=== PATIENT | female | born 1990 | race Caucasian/White ===

== ENCOUNTER 2016-10-18 11:53 | Outpatient (CLI) | payer OTHER | END 2016-10-18 11:54 | disposition home or self-care (01) | DX: M67.432 Ganglion, left wrist (principal); O99.89 Other specified diseases and conditions complicating pregnancy, childbirth and the puerperium; Z3A.15 15 weeks gestation of pregnancy ==

== ENCOUNTER 2016-12-02 14:26 | Observation (INO) | payer OTHER ==
[2016-12-02] MEDS ORDERED: TERBUTALINE 1 MG/ML VIAL SUBQ ONE ×2 (16:09→18:42)
[2016-12-02] MEDS ORDERED: NIFEdipine 10 MG CAPSULE PO ONE (17:43)
[2016-12-02] MEDS ORDERED: TERBUTALINE 1 MG/ML VIAL SUBQ SCH (20:00)
[2016-12-02] MEDS ORDERED: TERBUTALINE 2.5 MG TABLET PO SCH (20:00)
[2016-12-02] MEDS ORDERED: ZOLPIDEM 5 MG TABLET PO PRN (20:29)
[2016-12-03] MEDS: TERBUTALINE 2.5 MG TABLET PO SCH ×3 (00:40→08:22)
== END 2016-12-03 09:00 | disposition home or self-care (01) ==
DX: O60.02 Preterm labor without delivery, second trimester (principal); O44.52 Low lying placenta with hemorrhage, second trimester; Z3A.21 21 weeks gestation of pregnancy
CPT/HCPCS: 36415; 76816; 81003; 85025; 96372; 99214; A9270; G0378

== ENCOUNTER 2017-05-31 07:47 | Day surgery (SDC) | payer OTHER ==
[2017-05-31 08:32] LABS: HCG UR QUAL NEGATIVE
[2017-05-31] MEDS ORDERED: LACTATED RINGERS 1,000 ML IV ONE ×2 (08:35→10:50)
[2017-05-31] MEDS ORDERED: DEXAMETHASONE 4 MG/ML VIAL IVP ONE (09:45)
[2017-05-31] MEDS ORDERED: LIDOCAINE-MPF 2% 5 ML VIAL IM ONE (09:45)
[2017-05-31] MEDS ORDERED: fentaNYL 100 MCG/2 ML VIAL IVP ONE (09:45)
[2017-05-31] MEDS ORDERED: PROPOFOL 200 MG/20 ML VIAL IVP ONE (09:45)
[2017-05-31] MEDS ORDERED: KETOROLAC 30 MG/ML VIAL IVP ONE (09:45)
[2017-05-31] MEDS ORDERED: MIDAZOLAM 2 MG/2 ML VIAL IVP ONE (09:45)
[2017-05-31] MEDS ORDERED: ONDANSETRON 4 MG/2 ML VIAL IVP ONE (09:45)
[2017-05-31] MEDS ORDERED: BUPIVACAINE 0.25% PF 30 ML VIAL SUBQ ONE ×2 (09:54→10:06)
[2017-05-31] MEDS ORDERED: HYDROmorphone 1 MG/ML CARPUJECT ONE (10:43)
--- NOTE | 2017-05-31 11:13 | OPERATIVE REPORT ---
DATE OF SURGERY: 05/31/2017 00:00:00 PREOPERATIVE DIAGNOSIS: Left recurrent dorsal wrist ganglion. POSTOPERATIVE DIAGNOSIS: Left recurrent dorsal wrist ganglion. NAME OF PROCEDURE: Left dorsal wrist ganglion recurrent excision. SURGEON: Marco Berkowitz MD. TOY STUFFER: Ji Jc MD. ANESTHESIA: General. POSTOPERATIVE PLAN: Same day surgery, discharge. DISCHARGE INSTRUCTIONS: Keep the splint intact until followup appointment. At that time, we will nancy ve the splint and allow for range of motion as tolerated. INDICATIONS FOR SURGERY: This is a 26-year-old female who has a 5-year history of a dorsal wrist gang lion on the left side. She had no injury. It was excised in 2012 after aspiration. It then recurred i n 2015. It was aspirated by a hand surgeon in [place]. She continues to have pain and a palpable bump . An MRI showed that it was fluid filled. An ultrasound confirmed this. Secondary to her pain, she re quested surgery. Risks, benefits, alternatives were discussed. Risks include pain, bleeding, infectio n, damage to nearby structures, lack of symptom relief, need for further surgery, cyst recurrence whi ch is up to 20%, numbness, anesthetic risk and possibly . She signed a written consent form. EXAMINATION UNDER ANESTHESIA FINDINGS: There is a mildly positive Taylor, which is equal to the contr alateral side. Full range of motion, wrist extension, flexion, ulnar deviation, radial deviation, pro nation and supination as compared to the contralateral side. SURGICAL FINDINGS: A 5 cm x 5 cm fluid filled ganglion cyst, which tracked down to the radial carpal joint. The mass was excised and a section of the capsule was excised. IMPLANTS: None. ANTIBIOTICS: Weight based Ancef. ESTIMATED BLOOD LOSS: 1 mL. URINE OUTPUT: Not recorded. INTRAVENOUS FLUIDS: 700 mL. TOURNIQUET: 18 minutes at 200 mmHg. SPECIMENS: Left dorsal wrist mass. COMPLICATIONS: None. DISPOSITION: Stable to PACU. DEEP VENOUS THROMBOSIS PROPHYLAXIS: Early frequent ambulation. PROCEDURE IN DETAIL: The patient was met in the preop holding area on date of procedure. Upper extrem ity was signed, consent was verified. She desired to proceed. She was brought to the operating room a nd surrendered to anesthesia. Once general anesthesia had been obtained, she was placed in the supine position. All bony prominences were well-padded. The left arm was prepped and draped in the standard sterile fashion. A surgical time-out was held where we confirmed the procedure, procedure, identity , allergies, antibiotics. All were in agreement, we proceeded. An Esmarch was used to exsanguinate th e limb and tourniquet was elevated to 200 mmHg. Her prior incision was used, approximately 2 cm of it. Using tenotomy and Metzenbaum scissors, blunt dissection was carried around the mass. The stalk was traced back to the radiocarpal joint and the ma ss was excised at the stalk. A 5 mm portion of the capsule was then excised. Bovie was used for hemos tasis. The wound was irrigated copiously. Layered closure was performed with 2-0 Vicryl in the dermis and subcutaneous Monocryl and 5 mL of 0.25% Marcaine was instilled into and about the wound. Sterile dressing was applied and a splint was applied. The patient was awakened and transferred to the [facility] room. JOB #: [id number] EXT JOB #:[id number]
[2017-05-31 11:49] VITALS: BP 99/66
== END 2017-05-31 07:48 | disposition home or self-care (01) ==
LOC: SDS 07:47
PROVIDERS: ATTEND Orthopaedic Surgery
PROC: 0RBP0ZZ Excision of Left Wrist Joint, Open Approach (ICD-10-PCS; principal; 2017-05-31 09:00)
DX: M67.432 Ganglion, left wrist (principal)
CPT/HCPCS: 25112; 81025; J1170; J7120

== ENCOUNTER 2017-10-07 12:58 | Emergency (ER) | payer OTHER ==
[2017-10-07 13:21] LABS: BILIRUBIN,URINE NEGATIVE (NEGATIVE); GLUCOSE, URINE (UA) NEGATIVE (NEGATIVE); KETONES,URINE (UA) NEGATIVE (NEGATIVE); LEUKOCYTE ESTERASE, URINE NEGATIVE (NEGATIVE); NITRITE,URINE NEGATIVE (NEGATIVE); OCCULT BLOOD,URINE NEGATIVE (NEGATIVE); PROTEIN,URINE NEGATIVE (NEGATIVE); UROBILINOGEN,URINE 0.2 (NORMAL) E.U./dL (NORMAL)
[2017-10-07 13:24] LABS: CLARITY,URINE CLEAR (CLEAR); HCG UR QUAL NEGATIVE
[2017-10-07] MEDS ORDERED: SODIUM CHLORIDE 0.9% 1,000 ML IV ONE (13:31)
[2017-10-07] MEDS ORDERED: MORPHINE 2 MG/ML CARPUJECT IVP STA ×2 (13:31→14:11)
[2017-10-07] MEDS ORDERED: ONDANSETRON 4 MG/2 ML VIAL IVP STA (13:31)
[2017-10-07] MEDS ORDERED: cefTRIAXone 1 GM in SODIUM CHLORIDE 0.9% MINIBAG 100 ML IV STA (13:31)
--- NOTE | 2017-10-07 13:36 | ED Physician Documentation ---
PD HPI ABD PAIN - Stated complaint Stated Complaint: KIDNEY PX - Chief complaint Chief Complaint: Abd Pain - History obtained from History obtained from: Patient - History of Present Illness Timing - onset: Other (26-year-old woman has frequent UTIs. She developed symptoms of a bladder flexion including frequency and dysuria about 10 days ago. She saw her doctor 2 days ago and was diagnosed with pyelonephritis based on back pain and positive urinalysis. She is gotten worse despite taking Macrobid and Pyridium with back pain chills and nausea.) Review of Systems Constitutional: reports: Chills, Fatigue Nose: denies: Rhinorrhea / runny nose, Congestion GI: reports: Nausea, Vomiting. 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 - Present Medications Home Medications: Ambulatory Orders Medication Instructions Recorded Confirmed Ciprofloxacin HCl [Cipro] 500 mg PO BID #14 tablet 10/07/17 HYDROcod/ACETAM 5/325 [[place] 5/325] 1 - 2 ea PO Q6H PRN #15 tablet 10/07/17 Ondansetron HCl [Zofran] 4 mg PO Q6H PRN #10 tablet 10/07/17 Venlafaxine [Effexor] 37.5 mg PO BID 10/07/17 10/07/17 busPIRone [Buspar] 5 mg PO BID 10/07/17 10/07/17 - Allergies Allergies/Adverse Reactions: Allergies Allergy/AdvReac Type Severity Reaction Status Date / Time No Known Drug Allergies Allergy Verified 10/07/17 13:09 - Social History Does the pt smoke?: No Smoking Status: Never smoker Does the pt drink ETOH?: Yes Does the pt have substance abuse?: No - Immunizations Immunizations are current?: Yes - POLST Patient has POLST: No PD ED PE NORMAL - Vitals Vital signs reviewed: Yes - General General: Alert and oriented X 3, No acute distress - HEENT HEENT: PERRL, EOMI - Neck Neck: Supple, no meningeal sign, No bony TTP - Cardiac Cardiac: RRR, No murmur - Respiratory Respiratory: No respiratory distress, Clear bilaterally - Abdomen Abdomen: Non tender - Back Back: Other (Tender to the right CVA) - Neuro Neuro: Alert and oriented X 3, Normal speech - Psych Psych: Normal mood, Normal affect Results - Vitals Vitals: Vital Signs - 24 hr 10/07/17 10/07/17 13:06 14:41 Temperature 36.7 C Heart Rate 96 71 Respiratory 18 16 Rate Blood Pressure 98/59 L 95/52 L O2 Saturation 97 99 Oxygen O2 Source Room air - Labs Labs: Laboratory Tests 10/07/17 10/07/17 10/07/17 13:15 13:20 13:20 WBC 7.2 RBC 4.64 Hgb 13.9 Hct 41.5 MCV 89.5 MCH 30.0 MCHC 33.5 RDW 13.3 Plt Count 273 MPV 8.4 Neut # 3.3 Lymph # 2.9 Aiken # 0.4 Eos # 0.6 Baso # 0.1 Absolute Nucleated RBC 0.00 Nucleated RBC % 0.0 Sodium 138 Potassium 3.6 Chloride 103 Carbon Dioxide 24 Anion Gap 11.0 BUN 13 Creatinine 0.6 Estimated GFR (MDRD) 120 Glucose 89 Calcium 9.5 Total Bilirubin 0.7 AST 19 ALT 14 Alkaline Phosphatase 55 Total Protein 7.3 Albumin 4.7 Globulin 2.6 Albumin/Globulin Ratio 1.8 Lipase 36 Urine Color YELLOW Urine Clarity CLEAR Urine pH 6.0 Ur Specific [place] 1.025 Urine Protein NEGATIVE Urine Glucose (UA) NEGATIVE Urine Ketones NEGATIVE Urine Occult Blood NEGATIVE Urine Nitrite NEGATIVE Urine Bilirubin NEGATIVE Urine Urobilinogen 0.2 (NORMAL) Ur Leukocyte Esterase NEGATIVE Ur Microscopic Review NOT INDICATED Urine Culture Comments NOT INDICATED Urine HCG, Qual NEGATIVE PD MEDICAL DECISION MAKING - ED course ED course: She probably has incompletely treated pyelonephritis as Macrobid has poor penetration into the renal parenchyma. Based on this we will change her antibiotics to something with more systemic coverage, she will receive a Rocephin, IV fluids, morphine and Zofran in the emergency department. Symptoms much better after these interventions and her lab work is reassuring. Departure - Departure Disposition: 01 Home, Self Care Clinical Impression: Pyelonephritis Condition: Good Record reviewed to determine appropriate education?: Yes Instructions: Pyelonephritis Dc Prescriptions: Ciprofloxacin HCl [Cipro] 500 mg PO BID #14 tablet HYDROcod/ACETAM 5/325 [[place] 5/325] 1 - 2 ea PO Q6H PRN #15 tablet PRN Reason: Pain Ondansetron HCl [Zofran] 4 mg PO Q6H PRN #10 tablet PRN Reason: Nausea / Vomiting Comments: Follow-up with urologist on Monday as scheduled. Return if worse. Do not drink or drive while taking narcotic pain medication. Note that many narcotic pain relievers also contain Tylenol/acetaminophen. Please ensure that your total dose of acetaminophen from all sources does not exceed 3 g (3000 mg) per day. You may get constipated while on this medication. Take a stool softener such as Colace twice a day while you are on it. Also add an [id number] laxative such as senna or MiraLAX on any day that you do not have a bowel movement. If you received a narcotic pain medication or sedative while in the emergency department, do not drive for the next 24 hours.
[2017-10-07] MEDS ORDERED: KETOROLAC 60 MG/2 ML VIAL IVP STA (14:11)
[2017-10-07 14:17] LABS: ALBUMIN 4.7 g/dL (3.2-5.5); ALBUMIN/GLOBULIN RATIO 1.8 (1.0-2.2); BILIRUBIN,TOTAL 0.7 mg/dL (0.2-1.0); CALCIUM 9.5 mg/dL (8.5-10.3); CREATININE 0.6 mg/dL (0.4-1.0); TOTAL PROTEIN 7.3 g/dL (6.7-8.2)
[2017-10-07 14:39] LABS: BASOPHILS # (AUTO) 0.1 10^3/uL (0.0-0.1); BASOPHILS % (AUTO) 1.2 %; EOSINOPHILS # (AUTO) 0.6 10^3/uL (0.0-0.7); EOSINOPHILS % (AUTO) 7.9 %; HGB - HEMOGLOBIN 13.9 g/dL (12.0-16.0); LYMPHOCYTES # (AUTO) 2.9 10^3/uL (1.5-3.5); LYMPHOCYTES % (AUTO) 40.2 %; MEAN CORPUSCULAR HGB CONC 33.5 g/dL (32.0-36.0); MEAN CORPUSCULAR VOLUME 89.5 fL (81.0-99.0); MEAN PLATELET VOLUME 8.4 fL (7.9-10.8); MONOCYTES # (AUTO) 0.4 10^3/uL (0.0-1.0); MONOCYTES % (AUTO) 5.7 %; NEUTROPHILS # (AUTO) 3.3 10^3/uL (1.5-6.6); PLT - PLATELET COUNT 273 10^3/uL (130-450); RED BLOOD COUNT 4.64 10^6/uL (4.20-5.40); RED CELL DISTRIBUTION WIDTH 13.3 % (12.0-15.0); WHITE BLOOD COUNT 7.2 x10^3/uL (4.8-10.8)
[2017-10-07 14:42] VITALS: BP 95/52
[2017-10-07] MEDS ORDERED: HYDROcod/ACETAM 5/325 MG TABLET PO STA (14:49)
== END 2017-10-07 14:58 | disposition home or self-care (01) ==
LOC: ED 12:58
DX: N12 Tubulo-interstitial nephritis, not specified as acute or chronic (principal); Z87.440 Personal history of urinary (tract) infections; Z87.442 Personal history of urinary calculi
CPT/HCPCS: 36415; 80053; 81003; 81025; 83690; 85025; 96365; 96375; 96376; 99283; 99284; A9270; 81001; 87086

== ENCOUNTER 2017-10-09 15:07 | Outpatient (CLI) | payer OTHER | END 2017-10-09 15:08 | disposition EMS.NT | LOC: EMS 15:07 | PROVIDERS: ATTEND Surgery | DX: R55 Syncope and collapse (principal) ==

== ENCOUNTER 2017-10-12 12:00 | Observation (INO) | payer OTHER ==
[2017-10-12 12:55] LABS: BILIRUBIN,URINE NEGATIVE (NEGATIVE); GLUCOSE, URINE (UA) 100 mg/dL (NEGATIVE); KETONES,URINE (UA) TRACE mg/dL (NEGATIVE); LEUKOCYTE ESTERASE, URINE NEGATIVE (NEGATIVE); NITRITE,URINE POSITIVE (NEGATIVE); OCCULT BLOOD,URINE NEGATIVE (NEGATIVE); PROTEIN,URINE 100 mg/dL (NEGATIVE); UROBILINOGEN,URINE >=8.0 E.U./dL (NORMAL)
[2017-10-12 13:11] LABS: CLARITY,URINE HAZY (CLEAR); HCG UR QUAL NEGATIVE
[2017-10-12 13:13] LABS: BACTERIA,URINE Few /HPF (None Seen); MUCUS,URINE Marked Strands; RBC,URINE 0-5 /HPF (0-5); SQUAMOUS EPITHELIAL CELL,UR FEW Squamous (<= Few)
[2017-10-12] MEDS ORDERED: PROMETHAZINE INJ 12.5 MG in SODIUM CHLORIDE 0.9% 50 ML IV STA (13:35)
[2017-10-12] MEDS ORDERED: SODIUM CHLORIDE 0.9% 1,000 ML IV ONE (13:35)
[2017-10-12] MEDS: MORPHINE 2 MG/ML CARPUJECT IVP STA ×2 (13:49→13:53)
[2017-10-12 14:07] LABS: BASOPHILS # (AUTO) 0.1 10^3/uL (0.0-0.1); BASOPHILS % (AUTO) 1.2 %; EOSINOPHILS # (AUTO) 0.6 10^3/uL (0.0-0.7); EOSINOPHILS % (AUTO) 9.5 %; HGB - HEMOGLOBIN 13.6 g/dL (12.0-16.0); LYMPHOCYTES # (AUTO) 2.5 10^3/uL (1.5-3.5); LYMPHOCYTES % (AUTO) 38.9 %; MEAN CORPUSCULAR HEMOGLOBIN 30.2 pg (27.0-31.0); MEAN CORPUSCULAR VOLUME 88.9 fL (81.0-99.0); MEAN PLATELET VOLUME 7.8 fL (7.9-10.8); MONOCYTES # (AUTO) 0.4 10^3/uL (0.0-1.0); MONOCYTES % (AUTO) 5.9 %; NEUTROPHILS # (AUTO) 2.8 10^3/uL (1.5-6.6); NEUTROPHILS % (AUTO) 44.5 %; PLT - PLATELET COUNT 299 10^3/uL (130-450); RED BLOOD COUNT 4.52 10^6/uL (4.20-5.40); RED CELL DISTRIBUTION WIDTH 13.4 % (12.0-15.0); WHITE BLOOD COUNT 6.4 x10^3/uL (4.8-10.8)
[2017-10-12 14:11] LABS: CALCIUM 9.7 mg/dL (8.5-10.3); CREATININE 0.7 mg/dL (0.4-1.0)
--- NOTE | 2017-10-12 14:13 | ED Physician Documentation ---
History of Present Illness - Stated complaint Stated Complaint: FEMALE - Chief complaint Chief Complaint: General - Additonal information Additional information: pt sent to the ER to be admitted for pyelo failed outpt tx she 1st saw her PMD at [facility] who is also a urologist about a week ago - dx UTI/ pyelo, rx macrobid got worse came to our ER and was given IVF pain meds and changed to cipro continued to worsen and went to [facility] and was febrile and tachy and had a CT that showed stones (not causing blockage so presumably in kidney - will try and get results) and was again given IVF and meds and got better and was dced home again then followed up at clinic again today and was febrile to 103 and still having severe flank pain so given tylenol and motrin and sent here for admit states pain was initially l kidbey now both fever chills NV urinary sx Review of Systems Constitutional: reports: Fever, Chills Cardiac: denies: Chest pain / pressure Respiratory: denies: Dyspnea GI: reports: Nausea, Vomiting : reports: Dysuria Musculoskeletal: reports: Back pain Immunocompromised: denies: Immunocompromised PD PAST MEDICAL HISTORY - Past Medical History Past Medical History: Yes Cardiovascular: None Respiratory: None Neuro: Headache/migraine Endocrine/Autoimmune: None GI: None : Kidney stones HEENT: None Psych: Depression, Anxiety Musculoskeletal: Other Derm: None - Past Surgical History Past Surgical History: Yes 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, 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 - Present Medications Home Medications: Ambulatory Orders Medication Instructions Recorded Confirmed Ciprofloxacin HCl [Cipro] 500 mg PO BID #14 tablet 10/07/17 10/12/17 Venlafaxine [Effexor] 37.5 mg PO BID 10/07/17 10/12/17 busPIRone [Buspar] 5 mg PO BID 10/07/17 10/12/17 - Allergies Allergies/Adverse Reactions: Allergies Allergy/AdvReac Type Severity Reaction Status Date / Time No Known Drug Allergies Allergy Verified 10/12/17 12:09 - Social History Does the pt smoke?: No Smoking Status: Never smoker Does the pt drink ETOH?: Yes ETOH Use: Wine Does the pt have substance abuse?: No - Immunizations Immunizations are current?: Yes - POLST Patient has POLST: No PD ED PE NORMAL - Vitals Vital signs reviewed: Yes (slightly low BP afebrile now after apap and motrin) - General General: Alert and oriented X 3 - HEENT HEENT: PERRL - Neck Neck: Supple, no meningeal sign - Cardiac Cardiac: RRR - Respiratory Respiratory: No respiratory distress, Clear bilaterally - Abdomen Abdomen: Soft, Non tender - Back Back: No: No CVA TTP (mod [place] CVA TTP - but hurts regardless of whether being palpated) - Derm Derm: Normal color - Neuro Neuro: Alert and oriented X 3 Results - Vitals Vitals: Vital Signs - 24 hr 10/12/17 12:05 Temperature 36.5 C Heart Rate 91 Respiratory 16 Rate Blood Pressure 99/50 L O2 Saturation 97 Oxygen O2 Source Room air - Labs Labs: Laboratory Tests 10/12/17 10/12/17 10/12/17 12:23 13:35 13:35 WBC 6.4 RBC 4.52 Hgb 13.6 Hct 40.1 MCV 88.9 MCH 30.2 MCHC 34.0 RDW 13.4 Plt Count 299 MPV 7.8 L Neut # 2.8 Lymph # 2.5 Adams # 0.4 Eos # 0.6 Baso # 0.1 Absolute Nucleated RBC 0.00 Nucleated RBC % 0.0 Sodium 139 Potassium 3.5 Chloride 102 Carbon Dioxide 27 Anion Gap 10.0 BUN 12 Creatinine 0.7 Estimated GFR (MDRD) 100 Glucose 92 Lactic Acid Calcium 9.7 Urine Color DK. ORANGE Urine Clarity HAZY Urine pH 5.0 Ur Specific [place] >=1.030 H Urine Protein 100 H Urine Glucose (UA) 100 H Urine Ketones TRACE Urine Occult Blood NEGATIVE Urine Nitrite POSITIVE H Urine Bilirubin NEGATIVE Urine Urobilinogen >=8.0 H Ur Leukocyte Esterase NEGATIVE Urine RBC 0-5 Urine WBC 4-5 Ur Squamous Epith Cells FEW Squamous Urine Bacteria Few Urine Mucus Marked Strands Ur Microscopic Review INDICATED Urine Culture Comments INDICATED Urine HCG, Qual NEGATIVE 10/12/17 14:09 WBC RBC Hgb Hct MCV MCH MCHC RDW Plt Count MPV Neut # Lymph # Adams # Eos # Baso # Absolute Nucleated RBC Nucleated RBC % Sodium Potassium Chloride Carbon Dioxide Anion Gap BUN Creatinine Estimated GFR (MDRD) Glucose Lactic Acid 0.8 Calcium Urine Color Urine Clarity Urine pH Ur Specific [place] Urine Protein Urine Glucose (UA) Urine Ketones Urine Occult Blood Urine Nitrite Urine Bilirubin Urine Urobilinogen Ur Leukocyte Esterase Urine RBC Urine WBC Ur Squamous Epith Cells Urine Bacteria Urine Mucus Ur Microscopic Review Urine Culture Comments Urine HCG, Qual PD MEDICAL DECISION MAKING - ED course ED course: here pt is afebrile, borderline BP, nl WBC given hx of failing outpt tx after being dced from clinic X 2 and ER X 2 this week and sent to ER specifically to be admitted seems reasonable to provide at least an overnight of IVF and antibiotics called to [facility] and they verbally report urine culture from first visit grew E coli sensitive to everything (ampicillin augmentin, cefipime, rocephin, cefuroxime, cipro, cephalexin, levaquin, ertapenem imipenem, gent, macrobid, tetracycline and tobramycin) got records from [facility] and CT showed intrarenal stones nothing obstructive Departure - Departure Disposition: ED Place in Observation Clinical Impression: Pyelonephritis Condition: Good
[2017-10-12] MEDS ORDERED: CIPROFLOXACIN 400 MG/200 ML 200 ML IV ONE (15:45)
[2017-10-12] MEDS ORDERED: KETOROLAC 60 MG/2 ML VIAL IVP STA (15:51)
[2017-10-12] MEDS ORDERED: PROCHLORPERAZINE 10 MG/2 ML VIAL IVP PRN (17:57)
[2017-10-12] MEDS ORDERED: SODIUM CHLORIDE FLUSH 0.9% 10 ML SYRINGE IVP PRN (17:57)
[2017-10-12] MEDS ORDERED: ZOLPIDEM 5 MG TABLET PO PRN (17:57)
--- NOTE | 2017-10-12 18:13 | HISTORY & PHYSICAL EXAMINATION ---
Chief Complaint - Chief Complaint Chief Complaint: fever, urinary burning and flank pain History of Present Illness - Admitted From Admitted From:: ER - History Obtained From History obtained from: pt - History of Present Illness HPI Comment/Other: Ms. Feliciano is 26-year-old female with a past medical history significant for headache/migraine, kidney stone, Depression, Anxiety, who present ER for complaint of fever, bilateral flank pain, bladder and urinary burning sensation. Pt report she was first diagnosis of UTI/pyelonephritis by her urologist in [place], she was treated with Macrobid. She felt got worse then she went to ER. She was treated with IVF, pain medication, and Cipro. She got better and D/C to home. Then the pain came back again, and report she had fever. Pt denies chest pain, shortness of breath, headache, abdominal pain. ER provider contacted [facility]. The CT done report intrarenal stones without obstruction. The sensitive study of UA done reveal all sensitive to ampicillin augmentin, cefipime, rocephin, cefuroxime, cipro, cephalexin, levaquin, ertapenem imipenem, gent, macrobid, tetracycline and tobramycin. Today in ER, she is afebrile. UA reveals positive UTI. Other lab test is unremarkable. Pt also report her BP is always running at 90-100. 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 She has five children Living arrangement: At home Living Situation: With spouse/s.o., With family - Substance History Use: Uses substance without health or social issues: NONE Abuse: Recurrent use of substance despite neg consequences: NONE Dependence: Experiences withdrawal or developed tolerances: NONE - POLST Patient has POLST: No POLST Status: Full Code Meds/Allgy - Home Medications Home Medications: Ambulatory Orders Medication Instructions Recorded Confirmed Ciprofloxacin HCl [Cipro] 500 mg PO BID #14 tablet 10/07/17 10/12/17 Venlafaxine [Effexor] 75 mg PO DAILY 10/07/17 10/12/17 busPIRone [Buspar] 10 mg PO TID 10/07/17 10/12/17 - Allergies Allergies/Adverse Reactions: Allergies Allergy/AdvReac Type Severity Reaction Status Date / Time No Known Drug Allergies Allergy Verified 10/12/17 12:09 Review of Systems - Constitutional Constitutional: reports: Fatigue, Fever, Weakness. denies: Chills, Malaise, Poor appetite, Diaphoresis, Night sweats - Eyes Eyes: denies: Pain, Irritation, Amaurosis, Blurred vision, Spots in vision, Field loss, Vision loss, Dipolpia - Ears, Nose & Throat Ears, Nose & Throat: denies: Ear pain, Hearing loss, Hearing aids, Tinnitus, Vertigo, Nasal pain, Nasal discharge, Nosebleeds, Nasal congestion, Sore throat , Bleeding gums - Cardiovascular Cariovascular: denies: Irregular heart rate, Palpitations, Chest pain, Edema, Lightheadedness, Syncope, Exertional dyspnea, Decr. exercise tolerance - Respiratory Respiratory: denies: Cough, Sputum production, Wheezing, Snoring, Hemoptysis, Orthopnea, SOB at rest, SOB with exertion - Gastrointestinal Gastrointestinal: reports: Nausea. denies: Abdominal pain, Abdominal distention , Constipation, Diarrhea, Change in bowel habits, Rectal bleeding, Black stools , Bloody stools, Vomiting, Frankie blood emesis, Coffee grounds emesis, Reflux/ heartburn - Genitourinary Genitourinary: reports: Dysuria, Flank pain. denies: Frequency, Urgency, Hematuria, Incontinence, Nocturia, Urethral discharge - Musculoskeletal Musculoskeletal: denies: Muscle pain, Back pain, Muscle aches, Stiffness, Limited range of motion, Muscle weakness, Gout, Joint pain - Integumentary Integumentary: denies: Rash, Pruritis, Lesions, Dryness, Acne, Pigment changes - Neurological Neurological: denies: General weakness, Focal weakness, Headache, Dizziness, Numbness, Memory problems, Pre-existing deficit, Abnormal gait, Seizures, Incoordination, Slurred speech - Psychiatric Psychiatric: denies: Depression, Anxiety, Suicidal, Delusions, Hallucinations, Homicidal - Endocrine Endocrine: denies: Polyuria, Polydypsia, Polyphagia, Intolerance to cold - Hematologic/Lymphatic Hematologic/Lymphatic: denies: Anemia, Bruising, Petechiae, Blood clots, Lymphadenopathy, Bleeding tendencies, Recurrent infections Exam - Vital Signs Reviewed Vital Signs: Yes Vital Signs: Vital Signs x48h Temp Pulse Resp BP Pulse Ox 10/12/17 12:05 36.5 C 91 16 99/50 L 97 - Physical Exam General Appearance: positive: No acute distress, Alert. negative: Lethargic Eyes Bilateral: positive: Normal inspection, PERRL, EOMI, No lid inflammation, Conjunctivae nml ENT: positive: ENT inspection nml, Pharynx nml, No signs of dehydration. negative: Purulent nasal drainage, Pharyngeal erythema, Oral lesions Neck: positive: Nml inspection, Thyroid nml, No JVD, Trachea midline. negative : Thyromegaly, Lymphadenopathy (R), Lymphadenopathy (L), Stiff neck, Carotid bruit, Swelling/bruising, Tracheal deviation Respiratory: positive: Chest non-tender, No respiratory distress, Breath sounds nml. negative: Wheezes, Rales, Rhonchi Cardiovascular: positive: Regular rate & rhythm, No murmur, No gallop. negative : Irregularly irregular, Extrasystoles, Tachycardia, Bradycardia, Systolic murmur, Diastolic murmur Peripheral Pulses: positive: 2+ Abdomen: positive: Non-tender, No organomegaly, Nml bowel sounds, No distention. negative: Tenderness, Guarding, Rebound Back: positive: Nml inspection, CVA tenderness (R), CVA tenderness (L) Skin: positive: Color nml, No rash, Warm, Dry. negative: Cyanosis, Diaphoresis , Pallor, Skin rash Extremities: positive: Non-tender, Full ROM, Nml appearance. negative: Calf tenderness, Joint swelling, Santos's sign/cords Neurologic/Psychiatric: positive: Oriented x3, Motor nml, Sensation nml, Mood/ affect nml. negative: Sensory loss, Facial droop, Slurred/abnml speech, Depressed mood/affect Conclusion/Plan - Problem List (1) Urinary tract infection Conclusion/Plan: UA reveal positive UTI, sensitive study to all antibiotics as stated at HPI Cipro IV Bid IVF (2) Flank pain Conclusion/Plan: pain control. CT of abdomen reveal non-obstruction kidney stone (3) Kidney stone Conclusion/Plan: hx of Kidney stone, non-obstruction IVF pain control (4) Depression with anxiety Conclusion/Plan: stable, resume home meds (5) DVT prophylaxis Conclusion/Plan: SCD and Lovenox (6) Full code status Conclusion/Plan: pt request full code status - Lab Results Fish Bones: 10/13/17 05:19 10/13/17 05:19 Core Measures - Anticipated LOS I expect patient to be DC'd or transferred within 96 hours.: Yes - DVT/VTE - Prophylaxis VTE/DVT Device ordered at admit?: Yes VTE/DVT Prophylaxis med ordered at admit?: Yes - Stroke - Rehab Assessment Rehab services assessment to be ordered?: No - AMI - Statin at Admit Aspirin Prescribed on Admit: No
[2017-10-12] MEDS ORDERED: MORPHINE 10 MG/ML VIAL IVP STA (18:25)
[2017-10-12] MEDS: SODIUM CHLORIDE 0.9% 1,000 ML IV SCH (19:40)
[2017-10-12] MEDS: SODIUM CHLORIDE FLUSH 0.9% 10 ML SYRINGE IVP SCH (19:40)
[2017-10-12] MEDS: VENLAFAXINE 37.5 MG TABLET PO SCH (21:20)
[2017-10-12] MEDS: MORPHINE 2 MG/ML CARPUJECT IVP PRN (21:20)
[2017-10-12] MEDS: busPIRone 5 MG TABLET PO SCH (21:28)
[2017-10-13] MEDS: ONDANSETRON 4 MG/2 ML VIAL IVP PRN ×2 (00:12→06:05)
[2017-10-13] MEDS: MORPHINE 2 MG/ML CARPUJECT IVP PRN ×4 (00:12→07:07)
[2017-10-13] MEDS: KETOROLAC 15 MG/ML VIAL IVP PRN ×2 (01:20→10:05)
[2017-10-13] MEDS: SODIUM CHLORIDE 0.9% 1,000 ML IV SCH ×2 (04:54→11:46)
[2017-10-13 06:13] LABS: BASOPHILS % (AUTO) 0.6 %; EOSINOPHILS # (AUTO) 0.5 10^3/uL (0.0-0.7); EOSINOPHILS % (AUTO) 7.4 %; HGB - HEMOGLOBIN 12.1 g/dL (12.0-16.0); LYMPHOCYTES # (AUTO) 3.7 10^3/uL (1.5-3.5); MEAN CORPUSCULAR HEMOGLOBIN 29.4 pg (27.0-31.0); MEAN CORPUSCULAR HGB CONC 32.7 g/dL (32.0-36.0); MEAN CORPUSCULAR VOLUME 89.9 fL (81.0-99.0); MEAN PLATELET VOLUME 7.8 fL (7.9-10.8); MONOCYTES # (AUTO) 0.5 10^3/uL (0.0-1.0); MONOCYTES % (AUTO) 6.8 %; NEUTROPHILS # (AUTO) 2.3 10^3/uL (1.5-6.6); NEUTROPHILS % (AUTO) 32.2 %; PLT - PLATELET COUNT 249 10^3/uL (130-450); RED BLOOD COUNT 4.12 10^6/uL (4.20-5.40); RED CELL DISTRIBUTION WIDTH 13.2 % (12.0-15.0)
[2017-10-13 06:29] LABS: ALBUMIN 4.1 g/dL (3.2-5.5); ALBUMIN/GLOBULIN RATIO 1.9 (1.0-2.2); BILIRUBIN,TOTAL 0.2 mg/dL (0.2-1.0); CALCIUM 8.9 mg/dL (8.5-10.3); CREATININE 0.6 mg/dL (0.4-1.0); TOTAL PROTEIN 6.3 g/dL (6.7-8.2)
[2017-10-13] MEDS ORDERED: CIPROFLOXACIN 400 MG/200 ML 200 ML IV SCH ×2 (07:00→14:30)
[2017-10-13] MEDS: SODIUM CHLORIDE FLUSH 0.9% 10 ML SYRINGE IVP SCH ×2 (07:08→14:15)
[2017-10-13] MEDS ORDERED: SODIUM CHLORIDE 0.9% 500 ML IV ONE (07:36)
[2017-10-13] MEDS ORDERED: ENOXAPARIN 40 MG/0.4 ML SYRINGE SUBQ SCH (09:00)
[2017-10-13] MEDS ORDERED: FAMOTIDINE 20 MG TABLET PO SCH (09:00)
[2017-10-13] MEDS ORDERED: POLYETHYLENE GLYCOL 3350 17 GM PACKET PO SCH (09:00)
[2017-10-13] MEDS: VENLAFAXINE 37.5 MG TABLET PO SCH (09:57)
[2017-10-13] MEDS: busPIRone 5 MG TABLET PO SCH (09:57)
--- NOTE | 2017-10-13 12:24 | Discharge Plan ---
Discharge Plan Disposition: 01 Home, Self Care Condition: Stable Prescriptions: Ondansetron HCl [Zofran] 4 mg PO Q6H PRN #15 tablet PRN Reason: Nausea / Vomiting oxyCODONE [Roxicodone] 5 mg PO Q6H PRN #15 tablet PRN Reason: Pain Diet: Regular Activity Restrictions: Activity as Tolerated Shower Restrictions: No Driving Restrictions: No Weight Bearing: Full Weight Instruction Topics: UTI, Pyelonephritis Dc, Ciprofloxacin tablets, Oxycodone tablets or capsules, Ondansetron tablets Additional Instructions or Follow Up instructions: May follow up PCP/Urologist in 3-4 days. Should symptoms return or worsen, may present ER or call 911 for help. No Smoking: If you smoke, Please STOP! Call for help.
--- NOTE | 2017-10-13 12:35 | DISCHARGE SUMMARY ---
Discharge Summary Discharge Date: 10/13/17 Discharging Provider: STANTON Condition at Discharge: Stable Discharge Disposition: Home, Self Care Discharge Facility Name: home - DIAGNOSES Admission Diagnoses: (1) Urinary tract infection (2) Flank pain (3) Kidney stone (4) Depression with anxiety Discharge Diagnoses with Status of Each Condition: (1) Urinary tract infection pt feel much better and request to be discharged. Pt will continue to have antibiotics to finish the course (2) Flank pain pt state her pain is good controlled. pt is prescribed pain medication and Zofran to home (3) Kidney stone hx of kidney stone, non-obstructed. pt's pain is good controlled. pt is prescribed pain medication and Zofran to home (4) Depression with anxiety stable, continue home meds regime - HPI History of Present Illness: Ms. Feliciano is 26-year-old female with a past medical history significant for headache/migraine, kidney stone, Depression, Anxiety, who present ER for complaint of fever, bilateral flank pain, bladder and urinary burning sensation. Pt report she was first diagnosis of UTI/pyelonephritis by her urologist in [place], she was treated with Macrobid. She felt got worse then she went to ER. She was treated with IVF, pain medication, and Cipro. She got better and D/C to home. Then the pain came back again, and report she had fever. Pt denies chest pain, shortness of breath, headache, abdominal pain. ER provider contacted [facility]. The CT done report intrarenal stones without obstruction. The sensitive study of UA done reveal all sensitive to ampicillin augmentin, cefipime, rocephin, cefuroxime, cipro, cephalexin, levaquin, ertapenem imipenem, gent, macrobid, tetracycline and tobramycin. Today in ER, she is afebrile. UA reveals positive UTI. Other lab test is unremarkable. Pt also report her BP is always running at 90-100. - HOSPITAL COURSE Hospital Course: pt was admitted for recurrence of UTI, urinary burning sensation, and flank pain. The CT of abdomen and UA culture and sensitive study was done at out-pt facility. There was non-obstructed kidney stone and UA culture revealed sensitive to all antibiotics in the study. Pt was treated with Cipro IV bid, pain control, IVF. Pt report she feel much better, pain is in good control, no more nausea and vomiting, tolerate the food, and pt request to be discharged to home. Pt is prescribed pain meds, antibiotics and zofran to home. - ALLERGIES Allergies/Adverse Reactions: Allergies Allergy/AdvReac Type Severity Reaction Status Date / Time No Known Drug Allergies Allergy Verified 10/12/17 12:09 - MEDICATIONS Home Medications: Ambulatory Orders Medication Instructions Recorded Confirmed Ciprofloxacin HCl [Cipro] 500 mg PO BID #14 tablet 10/07/17 10/12/17 Venlafaxine [Effexor] 75 mg PO DAILY 10/07/17 10/12/17 busPIRone [Buspar] 10 mg PO TID 10/07/17 10/12/17 Ondansetron HCl [Zofran] 4 mg PO Q6H PRN #15 tablet 10/13/17 oxyCODONE [Roxicodone] 5 mg PO Q6H PRN #15 tablet 10/13/17 - PHYSICAL EXAM AT DISCHARGE General Appearance: positive: No acute distress, Alert. negative: Lethargic Eyes Bilateral: positive: Normal inspection, PERRL, EOMI, No lid inflammation, Conjunctivae nml ENT: positive: ENT inspection nml, Pharynx nml, No signs of dehydration. negative: Purulent nasal drainage, Pharyngeal erythema, Oral lesions, Dry mucous membranes Neck: positive: Nml inspection, Thyroid nml, No JVD, Trachea midline. negative : Thyromegaly, Lymphadenopathy (R), Lymphadenopathy (L), Stiff neck, Carotid bruit, Swelling/bruising, Tracheal deviation Respiratory: positive: Chest non-tender, No respiratory distress, Breath sounds nml. negative: Wheezes, Rales, Rhonchi Cardiovascular: positive: Regular rate & rhythm, No murmur, No gallop. negative : Irregularly irregular, Extrasystoles, Tachycardia, Bradycardia, Systolic murmur, Diastolic murmur Peripheral Pulses: positive: 2+ Abdomen: positive: Non-tender, No organomegaly, Nml bowel sounds, No distention. negative: Tenderness, Guarding, Rebound Back: positive: Nml inspection. negative: CVA tenderness (R), CVA tenderness (L ) Skin: positive: Color nml, No rash, Warm, Dry. negative: Cyanosis, Diaphoresis , Pallor, Skin rash Extremities: positive: Non-tender, Full ROM, Nml appearance. negative: Calf tenderness, Joint swelling, Santos's sign/cords Neurologic/Psychiatric: positive: Oriented x3, Motor nml, Sensation nml, Mood/ affect nml. negative: Sensory loss, Facial droop, Slurred/abnml speech, Depressed mood/affect - LABS Result Diagrams: 10/13/17 05:19 10/13/17 05:19 - FOLLOW UP Follow Up: May follow up PCP/urologist in 3-4 days, resume home meds, and new prescribed antibiotics, pain medication PRN, and antiemesis Zofran PRN. Pt is advised, should symptoms return or worsen, call 911 or present ER for help. - TIME SPENT Time Spent in Discharge (Minutes): 35
[2017-10-13 15:53] VITALS: BP 99/59
== END 2017-10-13 17:15 | disposition home or self-care (01) ==
LOC: ED 12:00 → OBS 17:57
PROVIDERS: ADMIT Nurse Practitioner Gerontology; ATTEND Nurse Practitioner Gerontology
DX: N12 Tubulo-interstitial nephritis, not specified as acute or chronic (principal); B96.20 Unspecified Escherichia coli [E. coli] as the cause of diseases classified elsewhere; N20.0 Calculus of kidney; F41.8 Other specified anxiety disorders
CPT/HCPCS: 36415; 80048; 80053; 81001; 81025; 83605; 85025; 87040; 87086; 96361; 96365; 96366; 96367; 96375; 96376; 99283; 99284; A9270; G0378; J7040; 81003

== ENCOUNTER 2017-10-18 19:48 | Emergency (ER) | payer OTHER ==
[2017-10-18 21:02] LABS: BILIRUBIN,URINE NEGATIVE (NEGATIVE); GLUCOSE, URINE (UA) NEGATIVE (NEGATIVE); KETONES,URINE (UA) TRACE mg/dL (NEGATIVE); LEUKOCYTE ESTERASE, URINE NEGATIVE (NEGATIVE); NITRITE,URINE NEGATIVE (NEGATIVE); OCCULT BLOOD,URINE TRACE-INTA (NEGATIVE); PH,URINE 6.5 PH (5.0-7.5); PROTEIN,URINE NEGATIVE (NEGATIVE); UROBILINOGEN,URINE 1 (NORMAL) E.U./dL (NORMAL)
[2017-10-18 21:03] LABS: CLARITY,URINE CLEAR (CLEAR)
[2017-10-18 21:05] LABS: HCG UR QUAL NEGATIVE
[2017-10-18] MEDS ORDERED: NAPROXEN 250 MG TABLET PO STA (21:24)
[2017-10-18] MEDS ORDERED: ONDANSETRON ODT 4 MG Prepack 2 TL PRN (21:24)
[2017-10-18] MEDS ORDERED: HYDROcod/ACET 5/325 Prepack 6 PO STA (21:24)
[2017-10-18] MEDS ORDERED: cephALEXin 250 MG CAPSULE PO STA (21:24)
[2017-10-18] MEDS ORDERED: DOCUSATE SODIUM 100 MG CAPSULE PO STA (21:24)
[2017-10-18] MEDS ORDERED: ONDANSETRON ODT 4 MG TABLET TL STA (21:24)
--- NOTE | 2017-10-18 21:25 | ED Physician Documentation ---
PD HPI ABD PAIN - Stated complaint Stated Complaint: BACK PX - Chief complaint Chief Complaint: UTI - History obtained from History obtained from: Patient - History of Present Illness Timing - onset: Today Timing - duration: Days Timing - details: Gradual onset, Still present (she has had recent UTI/pyelo and was in hospital for a day. Improved on Cipro and finished that 2 days ago. Having return of the flank pain and malaise feeling similar to recent and prior infections. She says she has had 6 UTIs/pyelo in the past year. Has history of renal stones (not in ureter on recent CTs). Most recent UTI showed e.coli with sensitivities to everything, listed on the discharge summary from 10/13/17 (was outside facility culture so the result not in our [facility]).), Waxing and waning Quality: Aching, Pain Radiation: Left flank Associated symptoms: Nausea, Constipation, Loss of appetite. No: Fever, Vomiting, Diarrhea, Dysuria, Near syncope / syncope, Vaginal dc Similar symptoms before: Diagnosis (UTI pyelo) Recently seen: Clinic, Emergency Dept, Admitted Review of Systems Constitutional: reports: Chills, Myalgias. denies: Fever Nose: denies: Rhinorrhea / runny nose, Congestion Throat: denies: Sore throat Cardiac: denies: Chest pain / pressure, Palpitations Respiratory: denies: Dyspnea, Cough GI: reports: Nausea, Constipation (firm for 3 weeks.). denies: Abdominal Swelling, Diarrhea : reports: Frequency. 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 - Present Medications Home Medications: Ambulatory Orders Medication Instructions Recorded Confirmed Ciprofloxacin HCl [Cipro] 500 mg PO BID #14 tablet 10/07/17 10/12/17 Venlafaxine [Effexor] 75 mg PO DAILY 10/07/17 10/12/17 busPIRone [Buspar] 10 mg PO TID 10/07/17 10/12/17 Ondansetron HCl [Zofran] 4 mg PO Q6H PRN #15 tablet 10/13/17 oxyCODONE [Roxicodone] 5 mg PO Q6H PRN #15 tablet 10/13/17 Cephalexin [Keflex] 500 mg PO TID #21 capsule 10/18/17 Docusate Sodium 100 mg PO BID #20 capsule 10/18/17 HYDROcod/ACETAM 5/325 [[place] 5/325] 1 tab PO Q6H PRN #20 tablet 10/18/17 Naproxen 375 mg PO BID #20 tablet 10/18/17 Ondansetron Odt [Zofran] 4 mg TL Q6H PRN #15 tablet 10/18/17 - Allergies Allergies/Adverse Reactions: Allergies Allergy/AdvReac Type Severity Reaction Status Date / Time No Known Drug Allergies Allergy Verified 10/18/17 20:05 - Social History Does the pt smoke?: No Smoking Status: Never smoker Does the pt drink ETOH?: Yes Does the pt have substance abuse?: No - Immunizations Immunizations are current?: Yes - POLST Patient has POLST: No POLST Status: Full Code PD ED PE NORMAL - Vitals Vital signs reviewed: Yes - General General: Alert and oriented X 3, No acute distress, Well developed/nourished - HEENT HEENT: Pharynx benign - Neck Neck: Supple, no meningeal sign, No adenopathy - Cardiac Cardiac: RRR, No murmur - Respiratory Respiratory: Clear bilaterally - Abdomen Abdomen: Normal bowel sounds, Soft, Non tender, Non distended - Female Female : Deferred - Rectal Rectal: Deferred - Back Back: No spinal TTP, Other (mild left CVA tenderness) - Derm Derm: Normal color, Warm and dry, No rash Results - Vitals Vitals: Vital Signs - 24 hr 10/18/17 10/18/17 20:04 21:36 Temperature 36.7 C 36.3 C L Heart Rate 90 83 Respiratory 20 18 Rate Blood Pressure 99/58 L 106/65 O2 Saturation 98 98 Oxygen O2 Source Room air - Labs Labs: Laboratory Tests 10/18/17 20:45 Urine Color YELLOW Urine Clarity CLEAR Urine pH 6.5 Ur Specific [place] 1.025 Urine Protein NEGATIVE Urine Glucose (UA) NEGATIVE Urine Ketones TRACE Urine Occult Blood TRACE-INTA Urine Nitrite NEGATIVE Urine Bilirubin NEGATIVE Urine Urobilinogen 1 (NORMAL) Ur Leukocyte Esterase NEGATIVE Ur Microscopic Review NOT INDICATED Urine Culture Comments NOT INDICATED Urine HCG, Qual NEGATIVE PD MEDICAL DECISION MAKING - ED course Complexity details: considered differential (urine appears normal here. Has symptoms c/w early UTI/pyelo. Can treat empirically and have her see PCP/ Urologist. She has some renal stones and consider if these are source of unclearing infection. ), d/w patient Departure - Departure Disposition: 01 Home, Self Care Clinical Impression: Flank pain, Cystitis Condition: Stable Record reviewed to determine appropriate education?: Yes Follow-Up: DOMINGA VEGA PA-C [Primary Care Provider] - Prescriptions: Cephalexin [Keflex] 500 mg PO TID #21 capsule Docusate Sodium 100 mg PO BID #20 capsule HYDROcod/ACETAM 5/325 [[place] 5/325] 1 tab PO Q6H PRN #20 tablet PRN Reason: Pain Naproxen 375 mg PO BID #20 tablet Ondansetron Odt [Zofran] 4 mg TL Q6H PRN #15 tablet PRN Reason: Nausea / Vomiting Comments: Drink lots of fluids. Naproxen twice daily for the next 7-10 days for inflammation. Ondansetron if needed for nausea. Add hydrocodone if needed for pain. Use docusate stool softener twice daily for a few days and then daily after that once you have softer bowel movements. Cephalexin for the urinary tract infection. Follow-up with your primary care in the next couple of days. This will give time for the urine culture result from today for results. Recheck if worsening symptoms. Discharge Date/Time: 10/18/17 21:41
[2017-10-18 21:37] VITALS: BP 106/65
== END 2017-10-18 21:41 | disposition home or self-care (01) ==
LOC: ED 19:48
DX: N30.00 Acute cystitis without hematuria (principal); Z87.442 Personal history of urinary calculi
CPT/HCPCS: 81003; 81025; 99283; A9270; Q0162; 81001; 87086

== ENCOUNTER 2017-11-06 19:27 | Emergency (ER) | payer OTHER ==
[2017-11-06 19:57] LABS: BILIRUBIN,URINE NEGATIVE (NEGATIVE); GLUCOSE, URINE (UA) NEGATIVE (NEGATIVE); KETONES,URINE (UA) TRACE mg/dL (NEGATIVE); LEUKOCYTE ESTERASE, URINE NEGATIVE (NEGATIVE); NITRITE,URINE NEGATIVE (NEGATIVE); OCCULT BLOOD,URINE NEGATIVE (NEGATIVE); PH,URINE 5.5 PH (5.0-7.5); PROTEIN,URINE NEGATIVE (NEGATIVE); UROBILINOGEN,URINE 0.2 (NORMAL) E.U./dL (NORMAL)
[2017-11-06 20:02] LABS: CLARITY,URINE CLEAR (CLEAR)
--- NOTE | 2017-11-06 21:11 | ED Physician Documentation ---
PD HPI FEMALE - Stated complaint Stated Complaint: BACK PX - Chief complaint Chief Complaint: General - History obtained from History obtained from: Patient - History of Present Illness Timing - onset: How many days ago (has had several days of marked dysuria again. Recurring issue with Dx of Pyelo and UTI, and was even hospitalized here for a day for it (subsequent urine culture showed mixed stevie though). Gets mostly better with abx course (recent Cipro) and then symptoms back soon after. Prior history of kidney stones, but scan in past month or so showed none passing , just in kidney.) Timing - duration: Days (this episode, but for 2 months intermittently with treatments for UTI.) Timing - details: Gradual onset, Still present Associated symptoms: Back pain, Dysuria, Urinary frequency. 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 denies: Fever, Chills Nose: denies: Rhinorrhea / runny nose, Congestion Throat: denies: Sore throat Respiratory: denies: Cough GI: reports: Abdominal Pain, Nausea. denies: Vomiting, Constipation, Diarrhea : reports: Dysuria, Frequency. 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 - Present Medications Home Medications: Ambulatory Orders Medication Instructions Recorded Confirmed Ciprofloxacin HCl [Cipro] 500 mg PO BID #14 tablet 10/07/17 10/12/17 Venlafaxine [Effexor] 75 mg PO DAILY 10/07/17 10/12/17 busPIRone [Buspar] 10 mg PO TID 10/07/17 10/12/17 Ondansetron HCl [Zofran] 4 mg PO Q6H PRN #15 tablet 10/13/17 oxyCODONE [Roxicodone] 5 mg PO Q6H PRN #15 tablet 10/13/17 Cephalexin [Keflex] 500 mg PO TID #21 capsule 10/18/17 Docusate Sodium 100 mg PO BID #20 capsule 10/18/17 HYDROcod/ACETAM 5/325 [[place] 5/325] 1 tab PO Q6H PRN #20 tablet 10/18/17 Naproxen 375 mg PO BID #20 tablet 10/18/17 Ondansetron Odt [Zofran] 4 mg TL Q6H PRN #15 tablet 10/18/17 HYDROcod/ACETAM 5/325 [[place] 5/325] 1 tab PO Q6H PRN #15 tablet 11/06/17 Metronidazole [Flagyl] 500 mg PO BID #14 tablet 11/06/17 Naproxen 375 mg PO BID #20 tablet 11/06/17 Phenazopyridine [Pyridium] 100 mg PO TID PRN #21 tablet 11/06/17 - Allergies Allergies/Adverse Reactions: Allergies Allergy/AdvReac Type Severity Reaction Status Date / Time No Known Drug Allergies Allergy Verified 11/06/17 19:37 - Social History Does the pt smoke?: No Smoking Status: Never smoker Does the pt drink ETOH?: Yes Does the pt have substance abuse?: No - Immunizations Immunizations are current?: Yes - POLST Patient has POLST: No POLST Status: Full Code PD ED PE NORMAL - Vitals Vital signs reviewed: Yes - General General: Alert and oriented X 3, No acute distress, Well developed/nourished - Cardiac Cardiac: RRR, No murmur - Respiratory Respiratory: Clear bilaterally - Abdomen Abdomen: Normal bowel sounds, Soft, Non tender, Non distended - Female Female : Planning Advisor present, Other (external normal. Vault with significant amount of white to clear mucousy discharge without obvious odor. There is moderate redness and irritation of the cervix. Tenderness of uterus, c/w PID. ) - Rectal Rectal: Deferred - Back Back: No spinal TTP, Other (mild tenderness lower back, not really kidneys area. No rash nor sores. ) Results - Vitals Vitals: Vital Signs - 24 hr 11/06/17 11/06/17 19:32 22:25 Temperature 36.7 C Heart Rate 85 68 Respiratory 16 16 Rate Blood Pressure 97/59 L 107/65 O2 Saturation 99 98 Oxygen O2 Source Room air - Labs Labs: Microbiology 11/06/17 21:52 Wet Prep - Final Genital - Cervix Laboratory Tests 11/06/17 19:51 Urine Color YELLOW Urine Clarity CLEAR Urine pH 5.5 Ur Specific [place] >=1.030 H Urine Protein NEGATIVE Urine Glucose (UA) NEGATIVE Urine Ketones TRACE Urine Occult Blood NEGATIVE Urine Nitrite NEGATIVE Urine Bilirubin NEGATIVE Urine Urobilinogen 0.2 (NORMAL) Ur Leukocyte Esterase NEGATIVE Ur Microscopic Review NOT INDICATED Urine Culture Comments NOT INDICATED PD MEDICAL DECISION MAKING - ED course Complexity details: reviewed results (her urine looks too normal (similar to prior visit, though seemed still UTI likely with that) and so discussed alternatives of vaginitis and interstitial cystitis. Opted on pelvic exam which was good as revealed likely issue of significant vaginitis. Appears likely chlamydia, but will cover for that/GC/BV as well. ), considered differential, d/ w patient Departure - Departure Disposition: Home, Self Care Clinical Impression: Dysuria Vaginitis Qualifiers: Chronicity: subacute Qualified Code(s): N76.1 - Subacute and chronic vaginitis Back pain Qualifiers: Back pain location: low back pain Chronicity: acute Back pain laterality: bilateral Sciatica presence: without sciatica Qualified Code(s): M54.5 - Low back pain Condition: Stable Record reviewed to determine appropriate education?: Yes Instructions: ED Vaginosis Bacterial Follow-Up: DOMINGA VEGA PA-C [Primary Care Provider] - Prescriptions: HYDROcod/ACETAM 5/325 [[place] 5/325] 1 tab PO Q6H PRN #15 tablet PRN Reason: Pain Metronidazole [Flagyl] 500 mg PO BID #14 tablet Naproxen 375 mg PO BID #20 tablet Phenazopyridine [Pyridium] 100 mg PO TID PRN #21 tablet PRN Reason: Pain Comments: The vaginal exam is abnormal and looks like a bacterial vaginitis. The culture results will be available in 3 days to tell us if it is an STD. We did give you some antibiotic treatment for that. Other bacterial vaginitis can be treated with metronidazole (Flagyl) twice daily for a week. For the urinary symptoms, which can be caused by the vaginitis, use naproxen twice daily for a week and the phenazopyridine (Pyridium) for a week as well. Drink lots of fluids. Use Tylenol or hydrocodone if needed for pain. Follow-up with your primary care in about 3-5 days for recheck and also follow-up on the culture report. Discharge Date/Time: 11/06/17 22:25
[2017-11-06] MEDS ORDERED: PHENAZOPYRIDINE 100 MG TABLET PO STA (21:33)
[2017-11-06] MEDS ORDERED: NAPROXEN 250 MG TABLET PO STA (21:33)
[2017-11-06] MEDS ORDERED: HYDROcod/ACET 5/325 Prepack 6 PO STA (21:34)
[2017-11-06] MEDS ORDERED: HYDROcod/ACETAM 5/325 MG TABLET PO STA (21:34)
[2017-11-06] MEDS ORDERED: LIDOCAINE 1% 2 ML VIAL SUBQ ONE (22:00)
[2017-11-06] MEDS ORDERED: cefTRIAXone 500 MG VIAL IM STA (22:00)
[2017-11-06] MEDS ORDERED: AZITHROMYCIN 250 MG TABLET PO STA (22:00)
[2017-11-06 22:26] VITALS: BP 107/65
== END 2017-11-06 22:25 | disposition home or self-care (01) ==
LOC: ED 19:27
DX: N76.1 Subacute and chronic vaginitis (principal)
CPT/HCPCS: 81003; 87210; 87491; 87591; 96372; 99283; A9270; 81001; 87086

== ENCOUNTER 2017-11-24 17:33 | Emergency (ER) | payer OTHER ==
[2017-11-24 17:40] VITALS: BP 110/79
[2017-11-24 17:58] LABS: BILIRUBIN,URINE NEGATIVE (NEGATIVE); GLUCOSE, URINE (UA) NEGATIVE (NEGATIVE); KETONES,URINE (UA) NEGATIVE (NEGATIVE); LEUKOCYTE ESTERASE, URINE TRACE (NEGATIVE); NITRITE,URINE NEGATIVE (NEGATIVE); OCCULT BLOOD,URINE NEGATIVE (NEGATIVE); PROTEIN,URINE NEGATIVE (NEGATIVE); UROBILINOGEN,URINE 0.2 (NORMAL) E.U./dL (NORMAL)
[2017-11-24 18:01] LABS: CLARITY,URINE CLEAR (CLEAR)
[2017-11-24 18:04] LABS: HCG UR QUAL NEGATIVE
--- NOTE | 2017-11-24 18:07 | ED Physician Documentation ---
History of Present Illness - Stated complaint Stated Complaint: FEMALE - Chief complaint Chief Complaint: General - History obtained from History obtained from: Patient - History of Present Illness Timing: Other (26-year-old G5 status post remote tubal ligation with no acute complaint. She is frustrated because of the last few months she has had urinary frequency and left-sided back pain and last night she had dyspareunia and spotting not related to her menses which is gone today. She was seen here, diagnosed with pyelonephritis but the culture was negative. Later had cervicitis, but STD testing etc. and wet prep etc. were negative here as well. She was treated for PID with no relief. She continues to have left-sided low back pain which radiates into the leg and urinary frequency and dysuria. 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 - Present Medications Home Medications: Ambulatory Orders Medication Instructions Recorded Confirmed Venlafaxine [Effexor] 75 mg PO DAILY 10/07/17 10/12/17 busPIRone [Buspar] 10 mg PO TID 10/07/17 10/12/17 HYDROcod/ACETAM 5/325 [[place] 5/325] 1 - 2 ea PO Q6H PRN #10 tablet 11/24/17 - Allergies Allergies/Adverse Reactions: Allergies Allergy/AdvReac Type Severity Reaction Status Date / Time No Known Drug Allergies Allergy Verified 11/06/17 19:37 - Social History Does the pt smoke?: No Smoking Status: Never smoker Does the pt drink ETOH?: Yes Does the pt have substance abuse?: No - Immunizations Immunizations are current?: Yes - POLST Patient has POLST: No POLST Status: Full Code PD ED PE NORMAL - Vitals Vital signs reviewed: Yes - General General: Alert and oriented X 3, No acute distress - Cardiac Cardiac: RRR, No murmur - Respiratory Respiratory: No respiratory distress, Clear bilaterally - Abdomen Abdomen: Soft, Non tender - Back Back: No spinal TTP - Extremities Extremities: Other (The patient has equal and normal Achilles and patellar reflexes bilaterally. Normal sensation in all areas of the legs. Patient denies saddle anesthesia. Normal strength in flexion-extension at the ankles, knees, and flexion of the hips.) - Neuro Neuro: Alert and oriented X 3, Normal speech Results - Vitals Vitals: Vital Signs - 24 hr 11/24/17 17:38 Temperature 36.9 C Heart Rate 118 H Respiratory 18 Rate Blood Pressure 110/79 O2 Saturation 100 Oxygen O2 Source Room air - Labs Labs: Laboratory Tests 11/24/17 11/24/17 11/24/17 17:40 17:40 18:40 Urine Color YELLOW YELLOW Urine Clarity CLEAR CLEAR Urine pH 6.0 6.0 Ur Specific [place] >=1.030 H >=1.030 H >=1.030 H Urine Protein NEGATIVE NEGATIVE Urine Glucose (UA) NEGATIVE NEGATIVE Urine Ketones NEGATIVE NEGATIVE Urine Occult Blood NEGATIVE NEGATIVE Urine Nitrite NEGATIVE NEGATIVE Urine Bilirubin NEGATIVE NEGATIVE Urine Urobilinogen 0.2 (NORMAL) 0.2 (NORMAL) Ur Leukocyte Esterase TRACE H NEGATIVE Urine RBC 0-5 Urine WBC 6-10 H Ur Squamous Epith Cells MANY Squamous H Urine Bacteria Rare Ur Microscopic Review INDICATED NOT INDICATED Urine Culture Comments NOT INDICATED NOT INDICATED Urine HCG, Qual NEGATIVE Departure - Departure Disposition: 01 Home, Self Care Clinical Impression: Dysuria Clinical Impression: (Ruled Out): Urinary tract infection Condition: Good Record reviewed to determine appropriate education?: Yes Instructions: ED Dysuria Uncertain Cause Prescriptions: HYDROcod/ACETAM 5/325 [[place] 5/325] 1 - 2 ea PO Q6H PRN #10 tablet PRN Reason: Pain Comments: Your urinalysis is normal today without evidence of infection and as discussed other infections have been ruled out on previous visits. Talk with your doctor about appropriate referrals for pelvic floor dysfunction/interstitial cystitis.
[2017-11-24 18:09] LABS: BACTERIA,URINE Rare /HPF (None Seen); RBC,URINE 0-5 /HPF (0-5); SQUAMOUS EPITHELIAL CELL,UR MANY Squamous (<= Few)
[2017-11-24 18:57] LABS: BILIRUBIN,URINE NEGATIVE (NEGATIVE); GLUCOSE, URINE (UA) NEGATIVE (NEGATIVE); KETONES,URINE (UA) NEGATIVE (NEGATIVE); LEUKOCYTE ESTERASE, URINE NEGATIVE (NEGATIVE); NITRITE,URINE NEGATIVE (NEGATIVE); OCCULT BLOOD,URINE NEGATIVE (NEGATIVE); PROTEIN,URINE NEGATIVE (NEGATIVE); UROBILINOGEN,URINE 0.2 (NORMAL) E.U./dL (NORMAL)
[2017-11-24 19:02] LABS: CLARITY,URINE CLEAR (CLEAR)
== END 2017-11-24 19:07 | disposition home or self-care (01) ==
LOC: ED 17:33
DX: R30.0 Dysuria (principal); Z87.442 Personal history of urinary calculi; R35.0 Frequency of micturition
CPT/HCPCS: 81001; 81003; 81025; 87086; 99283

== ENCOUNTER 2018-04-09 14:18 | Emergency (ER) | payer OTHER ==
[2018-04-09 15:06] LABS: BILIRUBIN,URINE NEGATIVE (NEGATIVE); GLUCOSE, URINE (UA) NEGATIVE (NEGATIVE); KETONES,URINE (UA) NEGATIVE (NEGATIVE); OCCULT BLOOD,URINE NEGATIVE (NEGATIVE); PH,URINE 6.5 PH (5.0-7.5); PROTEIN,URINE NEGATIVE (NEGATIVE); UROBILINOGEN,URINE 1 (NORMAL) E.U./dL (NORMAL)
[2018-04-09 15:09] LABS: CLARITY,URINE CLEAR (CLEAR); HCG UR QUAL NEGATIVE
--- NOTE | 2018-04-09 15:55 | ED Physician Documentation ---
PD HPI FEMALE - Stated complaint Stated Complaint: FEVER/CHILLS/BK PX/FM - Chief complaint Chief Complaint: Abd Pain - History obtained from History obtained from: Patient - History of Present Illness Timing - onset: How many days ago (1-2 days of malaise, chills, right flank pain and recurrent dysuria. Seen recently for UTI and was Rx Macrobid from urgent care in [place], without improvement. Seen again in [place] 9 days ago and Rx Levaquin with improvement. FInished it 2 days ago and symptoms back now just being done with abx. Denies vaginal discharge and has not had BV in the past) Timing - duration: Days (2) Timing - details: Abrupt onset Associated symptoms: Back pain (right flank), Dysuria, Urinary frequency. No: Fever (but has feeling of chills.), Vaginal bleeding, Vaginal discharge, Genital sore/lesion, Hematuria Contributing factors: Sexually active. No: Exposed to STD Similar symptoms before: Diagnosis (UTIs and kidney infections.) Recently seen: Clinic Review of Systems Constitutional: reports: Chills, Myalgias. denies: Fever Nose: denies: Rhinorrhea / runny nose, Congestion GI: reports: Abdominal Pain. denies: Nausea, Vomiting, Diarrhea : reports: Dysuria, Frequency. denies: Discharge, Irregular menses Skin: denies: Rash, Lesions PD PAST MEDICAL HISTORY - Past Medical History Cardiovascular: None Respiratory: None Endocrine/Autoimmune: None GI: None : Kidney stones HEENT: None Psych: Depression, Anxiety Musculoskeletal: Other Derm: None - Past Surgical History Past Surgical History: Yes Ortho: Other /RECEPTION: Tubal ligation, 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 - Present Medications Home Medications: Ambulatory Orders Medication Instructions Recorded Confirmed Venlafaxine [Effexor] 75 mg PO DAILY 10/07/17 10/12/17 Cephalexin [Keflex] 500 mg PO TID #21 capsule 04/09/18 Naproxen 375 mg PO BID #20 tablet 04/09/18 Oxybutynin [Ditropan] 5 mg PO BID PRN #15 tablet 04/09/18 Phenazopyridine HCl 200 mg PO TID PRN #30 tablet 04/09/18 - Allergies Allergies/Adverse Reactions: Allergies Allergy/AdvReac Type Severity Reaction Status Date / Time No Known Drug Allergies Allergy Verified 04/09/18 14:25 - Social History Does the pt smoke?: No Smoking Status: Never smoker Does the pt drink ETOH?: Yes Does the pt have substance abuse?: No - Immunizations Immunizations are current?: Yes - POLST Patient has POLST: No POLST Status: Full Code PD ED PE NORMAL - Vitals Vital signs reviewed: Yes - General General: Alert and oriented X 3, No acute distress, Well developed/nourished - Neck Neck: Supple, no meningeal sign, No adenopathy - Cardiac Cardiac: RRR, No murmur - Respiratory Respiratory: Clear bilaterally - Abdomen Abdomen: Soft, Non tender - Female Female : Deferred - Rectal Rectal: Deferred - Back Back: No spinal TTP, Other (some CVA tenderness right side) - Derm Derm: Normal color, Warm and dry, No rash - Extremities Extremities: No deformity, No tenderness to palpate, Normal ROM s pain - Neuro Neuro: Alert and oriented X 3, No motor deficit, Normal speech Results - Vitals Vitals: Vital Signs - 24 hr 04/09/18 04/09/18 14:22 17:17 Temperature 36.6 C Heart Rate 94 61 Respiratory 20 18 Rate Blood Pressure 95/67 96/57 L O2 Saturation 97 100 Oxygen O2 Source Room air - Labs Labs: Laboratory Tests 04/09/18 14:30 Urine Color ORANGE Urine Clarity CLEAR Urine pH 6.5 Ur Specific [place] 1.020 Urine Protein NEGATIVE Urine Glucose (UA) NEGATIVE Urine Ketones NEGATIVE Urine Occult Blood NEGATIVE Urine Nitrite Urine Bilirubin NEGATIVE Urine Urobilinogen 1 (NORMAL) Ur Leukocyte Esterase Ur Microscopic Review NOT INDICATED Urine Culture Comments NOT INDICATED Urine HCG, Qual NEGATIVE PD MEDICAL DECISION MAKING - ED course Complexity details: reviewed old records, reviewed results ([facility] called the urgent care in [place] and also looked at labs for [facility], and neither place did a urine culture. ), considered differential, d/w patient - Sepsis Event Vital Signs: Vital Signs - 24 hr 04/09/18 04/09/18 14:22 17:17 Temperature 36.6 C Heart Rate 94 61 Respiratory 20 18 Rate Blood Pressure 95/67 96/57 L O2 Saturation 97 100 Oxygen O2 Source Room air Departure - Departure Disposition: 01 Home, Self Care Clinical Impression: Dysuria Urinary tract infection Qualifiers: Urinary tract infection type: acute cystitis Hematuria presence: without hematuria Qualified Code(s): N30.00 - Acute cystitis without hematuria Condition: Stable Record reviewed to determine appropriate education?: Yes Instructions: ED UTI Cystitis Female Prescriptions: Cephalexin [Keflex] 500 mg PO TID #21 capsule Naproxen 375 mg PO BID #20 tablet Oxybutynin [Ditropan] 5 mg PO BID PRN #15 tablet PRN Reason: Spasms Phenazopyridine HCl 200 mg PO TID PRN #30 tablet PRN Reason: Abdominal Pain Comments: Drink lots of fluids. Cephalexin antibiotic 3 times a day for the next week. Phenazopyridine as needed for discomfort of urination. Ditropan if needed for bladder spasms. Naproxen twice daily for the next 7-10 days for inflammation initially to help with the discomfort urinating as well as the back pain. Recheck if not improving over the next few days. Discharge Date/Time: 04/09/18 17:24
[2018-04-09] MEDS ORDERED: OXYBUTYNIN 5MG TABLET PO STA (16:40)
[2018-04-09] MEDS ORDERED: PHENAZOPYRIDINE 100 MG TABLET PO STA (16:40)
[2018-04-09] MEDS ORDERED: NAPROXEN 250 MG TABLET PO STA (16:40)
[2018-04-09] MEDS ORDERED: cephALEXin 250 MG CAPSULE PO STA (16:41)
[2018-04-09 17:17] VITALS: BP 96/57
== END 2018-04-09 17:24 | disposition home or self-care (01) ==
LOC: ED 14:18
DX: N30.00 Acute cystitis without hematuria (principal)
CPT/HCPCS: 81003; 81025; 99282; 99283; A9270; 81001; 87086; 87491; 87591

== ENCOUNTER 2018-04-11 09:27 | Emergency (ER) | payer OTHER ==
[2018-04-11 10:17] LABS: BILIRUBIN,URINE NEGATIVE (NEGATIVE); OCCULT BLOOD,URINE NEGATIVE (NEGATIVE)
[2018-04-11 10:21] LABS: CLARITY,URINE CLEAR (CLEAR); HCG UR QUAL NEGATIVE
[2018-04-11 10:49] LABS: BACTERIA,URINE Few /HPF (None Seen); RBC,URINE 0-5 /HPF (0-5); SQUAMOUS EPITHELIAL CELL,UR MOD Squamous (<= Few)
[2018-04-11 10:50] LABS: MUCUS,URINE Moderate Strands
[2018-04-11] MEDS ORDERED: KETOROLAC 60 MG/2 ML VIAL IVP STA (11:03)
[2018-04-11] MEDS ORDERED: SODIUM CHLORIDE 0.9% 1,000 ML IV ONE (11:03)
--- NOTE | 2018-04-11 11:23 | ED Physician Documentation ---
History of Present Illness - Stated complaint Stated Complaint: R SIDE PX - Chief complaint Chief Complaint: Abd Pain - Additonal information Additional information: hx from pt 27 f hx kidney stones s/p tubal ligation has had flank pain R > L for several weeks seen at [facility] and dx pyelo txed with macrobid, then seen in a [place] ED and dx pyelo and txed with levquin, then seen in our ED and dx pyelo and txed with keflex did not have urine culture first two visits and on 3rd visit here UA was partially txed so UA did not trigger culture that time either she has not had imaging for stones she has continued pain NV fever to 101.6 she has a urologist but has not seen her for these sx - but she talked to urology on the phone and states urology rec she come to the ER to be admitted for IV ab Review of Systems Constitutional: reports: Fever. denies: Chills Cardiac: denies: Chest pain / pressure Respiratory: denies: Dyspnea GI: denies: Abdominal Pain : reports: Control (tubal). 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 - Present Medications Home Medications: Ambulatory Orders Medication Instructions Recorded Confirmed Venlafaxine [Effexor] 75 mg PO DAILY 10/07/17 10/12/17 Cephalexin [Keflex] 500 mg PO TID #21 capsule 04/09/18 Naproxen 375 mg PO BID #20 tablet 04/09/18 Oxybutynin [Ditropan] 5 mg PO BID PRN #15 tablet 04/09/18 Phenazopyridine HCl 200 mg PO TID PRN #30 tablet 04/09/18 Ibuprofen [Motrin] 400 mg PO Q6H PRN #30 tablet 04/11/18 Ondansetron Odt [Zofran] 4 mg TL Q6H PRN #10 tablet 04/11/18 Promethazine Supp [Phenergan Supp] 25 mg WA Q6H PRN #20 supp 04/11/18 - Allergies Allergies/Adverse Reactions: Allergies Allergy/AdvReac Type Severity Reaction Status Date / Time No Known Drug Allergies Allergy Verified 04/11/18 09:36 - Social History Does the pt smoke?: No Smoking Status: Never smoker Does the pt drink ETOH?: Yes Does the pt have substance abuse?: No - Immunizations Immunizations are current?: Yes - POLST Patient has POLST: No POLST Status: Full Code PD ED PE NORMAL - Vitals Vital signs reviewed: Yes (afebrile) - Neck Neck: Supple, no meningeal sign - Cardiac Cardiac: RRR - Respiratory Respiratory: No respiratory distress - Abdomen Abdomen: Soft, Non tender - Back Back: No: No CVA TTP (+ R CVA TTP) - Derm Derm: Normal color - Neuro Neuro: Alert and oriented X 3 Results - Vitals Vitals: Vital Signs - 24 hr 04/11/18 04/11/18 04/11/18 09:34 11:16 13:07 Temperature 36.9 C Heart Rate 98 70 72 Respiratory 20 15 15 Rate Blood Pressure 111/81 H 100/61 91/53 L O2 Saturation 95 98 99 Oxygen O2 Source Room air - Labs Labs: Laboratory Tests 04/11/18 10:00 Urine Color ORANGE Urine Clarity CLEAR Urine pH 6.0 Ur Specific [place] 1.025 Urine Protein Urine Glucose (UA) Urine Ketones Urine Occult Blood NEGATIVE Urine Nitrite Urine Bilirubin NEGATIVE Urine Urobilinogen Ur Leukocyte Esterase Urine RBC 0-5 Urine WBC 0-3 Ur Squamous Epith Cells MOD Squamous H Urine Bacteria Few Urine Mucus Moderate Strands Ur Microscopic Review INDICATED Urine Culture Comments NOT INDICATED Urine HCG, Qual NEGATIVE - Rads (name of study) CT AP Radiology: See rad report (no ureteral stone, L nephrolithiais, fullness and indistinct R collectimng system suggests pyelo) PD MEDICAL DECISION MAKING - ED course ED course: no infected stone urine clear of bacteria now do not think needs admit for IV ab pt happy with this plan will dc with zofran NSAIDS phenergan supp if zofran not working - Sepsis Event Vital Signs: Vital Signs - 24 hr 04/11/18 04/11/18 04/11/18 09:34 11:16 13:07 Temperature 36.9 C Heart Rate 98 70 72 Respiratory 20 15 15 Rate Blood Pressure 111/81 H 100/61 91/53 L O2 Saturation 95 98 99 Oxygen O2 Source Room air Departure - Departure Disposition: 01 Home, Self Care Clinical Impression: Pyelonephritis Condition: Good Instructions: ED Kidney Infec Female Prescriptions: Ibuprofen [Motrin] 400 mg PO Q6H PRN #30 tablet PRN Reason: Pain Ondansetron Odt [Zofran] 4 mg TL Q6H PRN #10 tablet PRN Reason: Nausea / Vomiting Promethazine Supp [Phenergan Supp] 25 mg WA Q6H PRN #20 supp PRN Reason: vomiting Comments: The infection seems to have cleared - almost all the bacteria are gone from the urine sample now The CT scan did not show a stone in the ureter to cause pain or complicate a kidney infection So I don' think you need to be admitted for IV antibiotics after all I think you should finish the keflex you are on, take motrin and tylenol for the pain, take zofran as the main treatment for vomiting but with phenergan suppositories as a back up if zofran does not stop the vomiting Drink lots of fluids I wrote a note for work Follow up with your urologist Return if worse
[2018-04-11] MEDS ORDERED: ONDANSETRON 4 MG/2 ML VIAL IVP STA (11:25)
--- NOTE | 2018-04-11 12:09 | CT Report ---
Procedure Date: 04/11/2018 Accession Number: [id number] / [id number] Procedure: CT - Abdomen/Pelvis W/O CPT Code: FULL RESULT: EXAM: CT ABDOMEN AND PELVIS (CT KUB) EXAM DATE: 04/11/2018 11:43 AM. CLINICAL HISTORY: Calculus of kidney. Right flank pain. COMPARISONS: 07/14/16. TECHNIQUE: Routine axial helical CT imaging was performed through the abdomen and pelvis without IV contrast. Reconstructions: Coronal and sagittal. In accordance with CT protocol optimization, one or more of the following dose reduction techniques were utilized for this exam: automated exposure control, adjustment of mA and/or KV based on patient size, or use of iterative reconstructive technique. FINDINGS: Lung Bases: Unremarkable. Right Kidney/Ureter: There is minimal fullness and indistinctness of the proximal urinary collecting system and renal hilar fat without overt hydronephrosis. There is no hydroureter. No distal obstructing stone is identified. Left Kidney/Ureter: Small 1-2 mm nonobstructing stone is seen in the mid kidney. There is no hydronephrosis. Other Solid Organs: Noncontrast images of the solid organs are grossly unremarkable. Gallbladder/Bile Ducts: Unremarkable. Peritoneal Cavity: No free fluid, free air or sohan adenopathy. Bowel is grossly unremarkable. The appendix is not visualized, however, no inflammatory changes are seen in the right lower quadrant region. Pelvic Organs: No bladder stones or wall thickening. Noncontrast images of the visualized pelvic organs are notable for surgical clips in bilateral adnexa presumably related to tubal ligation. Vasculature: Unremarkable. Other: Mild symmetric subcutaneous scarring is seen along the lower flank regions which may be related to prior cosmetic surgery. IMPRESSION: 1. Minor fullness and slight indistinctness involving the proximal right urinary collecting system without obstructing stone or overt hydronephrosis. Findings are nonspecific but could represent recently passed stone or changes related to pyelonephritis. 2. Left-sided nephrolithiasis without hydronephrosis. RADIA
[2018-04-11] MEDS ORDERED: oxyCODONE 5 MG TABLET PO STA (13:46)
[2018-04-11 13:58] VITALS: BP 105/85
== END 2018-04-11 14:20 | disposition home or self-care (01) ==
LOC: ED 09:27
DX: N12 Tubulo-interstitial nephritis, not specified as acute or chronic (principal); Z87.442 Personal history of urinary calculi; Z98.51 Tubal ligation status
CPT/HCPCS: 74176; 81001; 81025; 96361; 96374; 96375; 99284; A9270; 81003; 87086